=== PATIENT | female | born 1970 | race Caucasian/White ===

== ENCOUNTER 2020-11-21 08:36 | Emergency (ER) | payer OTHER ==
[~2020-11-21 08:36] MED LIST: ARMOUR THYROID90 MG PO; FOLIC ACID1 MG PO; NORCO 5-325 TA1 EACH PO; PREDNISONE5 MG PO; RHEUMATREX2.5 MG PO; ZOLOFT25 MG PO
[2020-11-21 09:16] LABS: BASOPHIL 0.7 % (0-2); EOSINOPHIL 0 % (0-5); HCT 40.6 % (37.0-47.0); HGB 14.1 g/dl (12.5-16.0); LYMPHOCYTE 28.2 % (15-48); MCH 29.8 pg (25.0-31.0); MCHC 34.7 g/dL (32.0-36.0); MCV 85.8 fL (78.0-100.0); MONOCYTE 9.5 % (0-12); MPV 10.4 fL (6.0-9.5); NEUTROPHIL 61.4 % (41-80); NRBC 0; PLT 242 K/uL (150-400); RBC 4.73 M/uL (4.20-5.40); RDW 11.9 % (11.5-14.0); WBC 5.4 K/uL (4.0-10.5)
[2020-11-21 09:34] LABS: ALBUMIN 4.1 g/dL (3.4-5.0); BILIRUBIN - TOTAL 0.5 mg/dL (0.2-1.0); BUN/CREAT RATIO (CALC) 15.5 RATIO; CREATININE 0.84 mg/dL (0.51-0.95); GLOBULIN (CALCULATION) 3.3 g/dL; POTASSIUM 3.5 mmol/L (3.5-5.1); TOTAL PROTEIN 7.4 g/dL (6.4-8.2)
[2020-11-21 09:38] LABS: BILIRUBIN NEGATIVE (NEGATIVE); BLOOD TRACE-INTACT Ery/uL (NEGATIVE); CLARITY CLEAR (CLEAR); COLOR YELLOW (YELLOW); GLUCOSE (U) NORMAL (NORMAL); LEUKOCYTES NEGATIVE Leu/uL (NEGATIVE); NITRITE NEGATIVE (NEGATIVE); PROTEIN NEGATIVE (NEGATIVE); SPECIFIC GRAVITY 1.015 (1.001-1.030); UROBILINOGEN 0.2 mg/dL (0.2-1.0)
[2020-11-21 09:52] LABS: BACTERIA TRACE; URINARY WBC RARE
[2020-11-21] MEDS ORDERED: ONDANSETRON ODT4 MG PO (11:09)
[2020-11-21] MEDS ORDERED: NORCO 5-325 TA1 EACH PO (11:09)
[2020-11-21] MEDS ORDERED: FLOMAX 0.4 MG0.4 MG PO (11:09)
== END 2020-11-21 11:25 | disposition home or self-care (01) ==
LOC: FER 08:36
PROVIDERS: Emergency Medicine
DX: N13.2 Hydronephrosis with renal and ureteral calculous obstruction (principal); Z90.710 Acquired absence of both cervix and uterus; Z98.890 Other specified postprocedural states; Z88.8 Allergy status to other drugs, medicaments and biological substances; Z79.899 Other long term (current) drug therapy
CPT/HCPCS: 36415; 80053; 81001; 83690; 85025; J1170; J2405; J7030

== ENCOUNTER 2020-11-22 12:09 | Emergency (ER) | payer OTHER ==
[~2020-11-22 12:09] MED LIST changes: +FLOMAX 0.4 MG0.4 MG PO; +ONDANSETRON ODT4 MG PO
[2020-11-22 14:21] LABS: BASOPHIL 0.5 % (0-2); EOSINOPHIL 0 % (0-5); HCT 36.3 % (37.0-47.0); HGB 12.6 g/dl (12.5-16.0); MCH 29.4 pg (25.0-31.0); MCHC 34.7 g/dL (32.0-36.0); MCV 84.8 fL (78.0-100.0); MONOCYTE 6.7 % (0-12); MPV 10.5 fL (6.0-9.5); NEUTROPHIL 80.1 % (41-80); NRBC 0; PLT 227 K/uL (150-400); RBC 4.28 M/uL (4.20-5.40); RDW 11.9 % (11.5-14.0)
[2020-11-22 14:21] LABS: BILIRUBIN NEGATIVE (NEGATIVE); BLOOD NEGATIVE Ery/uL (NEGATIVE); COLOR YELLOW (YELLOW); GLUCOSE (U) NORMAL (NORMAL); LEUKOCYTES NEGATIVE Leu/uL (NEGATIVE); NITRITE NEGATIVE (NEGATIVE); PROTEIN NEGATIVE (NEGATIVE); UROBILINOGEN 0.2 mg/dL (0.2-1.0); pH 7.5 (5.0-9.0)
[2020-11-22 14:22] LABS: WBC 9.7 K/uL (4.0-10.5)
[2020-11-22 14:24] LABS: CLARITY SLIGHTLY HAZY (CLEAR)
[2020-11-22 14:58] LABS: BILIRUBIN - TOTAL 0.4 mg/dL (0.2-1.0); BUN/CREAT RATIO (CALC) 14.7 RATIO; CREATININE 1.02 mg/dL (0.51-0.95); GLOBULIN (CALCULATION) 3.1 g/dL; POTASSIUM 3.7 mmol/L (3.5-5.1); TOTAL PROTEIN 7.1 g/dL (6.4-8.2)
== END 2020-11-22 17:14 | disposition home or self-care (01) ==
LOC: FER 12:09
PROVIDERS: Nurse Practitioner Family
DX: N23 Unspecified renal colic (principal); E03.9 Hypothyroidism, unspecified; Z88.8 Allergy status to other drugs, medicaments and biological substances; Z79.899 Other long term (current) drug therapy
CPT/HCPCS: 36415; 80053; 81003; 85025; J1885; J2405; J7030